=== PATIENT | female | born 1950 | race Caucasian/White ===

== ENCOUNTER 2017-06-16 21:43 | Emergency (ER) | payer OTHER, MEDICARE ==
[~2017-06-16] VITALS: Ht 165.1 cm; Wt 81.6 kg
[~2017-06-16 21:43] MED LIST: ACCUNEB 0.1.25 MG/1 INH; ALBUTEROL0.09 MG/A2 INH; ALBUTEROL2.5 MG/0.5 INH; AMBIEN5 MG PO; ATIVAN0.5 MG PO; ATIVAN1 MG PO; CARAFATE1 G1 PO; CRESTOR10 MG PO; LEXAPRO5 MG PO; MEDROL DOSEPAK4 MG PO; NEXIUM40 MG PO; PREDNICOT10 MG PO; PREDNICOT20 MG PO; PREDNISONE20 M1 PO; PREDNISONE20 MG PO; PROAIR HFA0.09 MG/AC INH; SINGULAIR10 MG PO; SYMBICORT1 AE1 INH; VIBRAMYCIN100 MG PO; VICODIN ES 7501 TAB PO; ZITHROMAX Z PA250 MG PO; [UNRECOGNIZED DRUG - OTHER] IH
[2017-06-16 21:49] VITALS: BP 127/59
[2017-06-16] MEDS ORDERED: CARAFATE1 G1 PO (21:52)
[2017-06-16 22:13] LABS: BASO % 0.5 % (0.0-1.0); EOS # 0.1 10*3/uL (0.0-0.4); EOS % 1.2 % (1.0-4.0); HEMATOCRIT 38.8 % (37.0-47.0); HEMOGLOBIN 12.9 g/dl (12.0-16.0); LYMPH # 2.4 10*3/uL (1.3-4.4); LYMPH % 36.3 % (27.0-41.0); MEAN CELL VOLUME 89.4 fl (81.0-99.0); MEAN CORPUSCULAR HGB 29.7 pg (27.0-31.0); MEAN CORPUSCULAR HGB CONC 33.2 g/dl (33.0-37.0); MEAN PLATELET VOLUME 9.9 fl (9.6-12.3); MONO # 0.5 10*3/uL (0.1-1.0); MONO % 7.1 % (3.0-9.0); NEUT # 3.6 10*3/uL (2.3-7.9); NEUT % 54.7 % (47.0-73.0); PLATELET COUNT AUTOMATED 188 10*3/uL (130-400); RED BLOOD COUNT 4.34 10*6/uL (4.10-5.10); RED CELL DISTRI WIDTH 13.1 % (0-14.5); WHITE BLOOD COUNT 6.6 10*3/uL (4.8-10.8)
[2017-06-16 22:30] LABS: ALBUMIN 3.8 gm/dl (3.1-4.5); ALKALINE PHOSPHATASE 54 U/L (45-117); BILIRUBIN, TOTAL 0.3 mg/dl (0.2-1.0); BUN 21 mg/dl (7-24); CARBON DIOXIDE 26 mmol/L (21-32); CHLORIDE 110 mmol/L (98-107); EST GLOM FILT AFRICAN AMERICAN 53 ml/min; GLUCOSE 113 mg/dL (65-99); MAGNESIUM 1.9 mg/dL (1.5-2.1); POTASSIUM 3.8 mmol/L (3.5-5.1); SGOT/AST 30 IU/L (3-35); SGPT/ALT 27 U/L (12-78); SODIUM 143 mmol/L (136-145); TOTAL PROTEIN 6.9 gm/dL (6.4-8.2)
[2017-06-16 22:31] LABS: TROPONIN I < 0.015 ng/ml (<0.045)
== END 2017-06-16 23:25 | disposition left against medical advice (07) ==
LOC: ED 21:43
PROVIDERS: Student in an Organized Health Care Education/Training Program
DX: R06.02 Shortness of breath (principal); R07.9 Chest pain, unspecified; Z79.899 Other long term (current) drug therapy; Z90.49 Acquired absence of other specified parts of digestive tract

== ENCOUNTER 2017-12-22 11:04 | Emergency (ER) | payer OTHER, MEDICARE ==
[~2017-12-22] VITALS: Ht 162.5 cm; Wt 88.0 kg
[2017-12-22 11:04] VITALS: BP 98/65
[2017-12-22 11:45] LABS: BASO % 0.5 % (0.0-1.0); EOS # 0.1 10*3/uL (0.0-0.4); HEMATOCRIT 38.3 % (37.0-47.0); HEMOGLOBIN 13.2 g/dl (12.0-16.0); LYMPH # 1.4 10*3/uL (1.3-4.4); LYMPH % 22.4 % (27.0-41.0); MEAN CORPUSCULAR HGB CONC 34.5 g/dl (33.0-37.0); MEAN PLATELET VOLUME 9.5 fl (9.6-12.3); MONO # 0.3 10*3/uL (0.1-1.0); NEUT # 4.4 10*3/uL (2.3-7.9); NEUT % 70.8 % (47.0-73.0); PLATELET COUNT AUTOMATED 196 10*3/uL (130-400); RED CELL DISTRI WIDTH 12.6 % (0-14.5); WHITE BLOOD COUNT 6.2 10*3/uL (4.8-10.8)
[2017-12-22 11:58] LABS: ALBUMIN 3.8 gm/dl (3.1-4.5); CREATININE 1.17 mg/dL (0.55-1.02); POTASSIUM 3.7 mmol/L (3.5-5.1); TOTAL PROTEIN 6.8 gm/dL (6.4-8.2)
== END 2017-12-22 13:12 | disposition home or self-care (01) ==
LOC: ED 11:04
PROVIDERS: Emergency Medicine
DX: J44.1 Chronic obstructive pulmonary disease with (acute) exacerbation (principal); Z79.899 Other long term (current) drug therapy

== ENCOUNTER 2022-10-31 16:01 | Emergency (ER) | payer MEDICARE ==
[~2022-10-31] VITALS: Ht 152.4 cm
[2022-10-31 16:13] VITALS: BP 138/64
[2022-10-31 16:51] LABS: BASO % 0.5 % (0.0-1.0); EOS % 0.2 % (1.0-4.0); HEMATOCRIT 40.7 % (37.0-47.0); LYMPH # 0.5 10*3/uL (1.3-4.4); LYMPH % 7.4 % (27.0-41.0); MEAN CELL VOLUME 87.7 fl (81.0-99.0); MEAN CORPUSCULAR HGB 30.2 pg (27.0-31.0); MEAN CORPUSCULAR HGB CONC 34.4 g/dl (33.0-37.0); MEAN PLATELET VOLUME 9.3 fl (9.6-12.3); MONO # 0.6 10*3/uL (0.1-1.0); MONO % 9.3 % (3.0-9.0); NEUT # 5.3 10*3/uL (2.3-7.9); NEUT % 82.4 % (47.0-73.0); PLATELET COUNT AUTOMATED 165 10*3/uL (130-400); RED BLOOD COUNT 4.64 10*6/uL (4.10-5.10); RED CELL DISTRI WIDTH 12.8 % (0-14.5); WHITE BLOOD COUNT 6.5 10*3/uL (4.8-10.8)
[2022-10-31 17:15] LABS: ALKALINE PHOSPHATASE 49 U/L (46-116); BUN 10 mg/dl (9-23); CHLORIDE 103 mmol/L (98-107); POTASSIUM 3.4 mmol/L (3.4-5.1); SGPT/ALT 17 U/L (10-49); TOTAL PROTEIN 6.5 gm/dL (6.0-8.0)
[2022-10-31 17:35] LABS: BILIRUBIN Negative (Negative); BLOOD 1+ (Negative); CLARITY Clear (Clear); COLOR Yellow (Yellow); GLUCOSE Negative (Negative); KETONE Trace (Negative); LEUKO ESTERASE Negative (Negative); NITRITE Negative (Negative); PH 5.5 (4.5-8.0); UROBILINOGEN 0.2 E.U./dl (0.0-1.0)
[2022-10-31 17:58] LABS: RBC 0-2 rbc/hpf (0-2)
== END 2022-10-31 18:45 | disposition home or self-care (01) ==
LOC: ED 16:01
PROVIDERS: Student in an Organized Health Care Education/Training Program
DX: U07.1 COVID-19 (principal); Z90.49 Acquired absence of other specified parts of digestive tract; F10.90 Alcohol use, unspecified, uncomplicated